=== PATIENT | male | born 1950 | race Caucasian/White ===

== ENCOUNTER 2017-07-29 10:47 | Emergency (ER) | payer BC ==
[~2017-07-29] VITALS: Ht 175.3 cm; Wt 79.5 kg
[~2017-07-29 10:47] MED LIST: AMOXICILLIN 8751 TAB PO; ZOCOR5 MG PO
[2017-07-29 10:51] VITALS: TEMP 97.6
[2017-07-29] MEDS ORDERED: NORCO 325 MG-51 TAB PO (15:32)
[2017-07-29 16:49] VITALS: BP 134/86; PULSE 76
== END 2017-07-29 16:48 | disposition home or self-care (01) ==
LOC: COL.ER 10:47
DX: S43.004A Unspecified dislocation of right shoulder joint, initial encounter (principal); W19.XXXA Unspecified fall, initial encounter; Y92.009 Unspecified place in unspecified non-institutional (private) residence as the place of occurrence of the external cause
CPT/HCPCS: J2250; J2704; J2765; J3010; J7030

== ENCOUNTER 2018-03-15 13:11 | Emergency (ER) | payer BC ==
[~2018-03-15] VITALS: Ht 175.3 cm; Wt 79.5 kg
[~2018-03-15 13:11] MED LIST changes: +NORCO 325 MG-51 TAB PO
[2018-03-15 13:30] LABS: BASO # 0.1 (0.0-0.2); BASO % 0.5 % (0.0-2.0); EOS # 0.2 (0.0-0.7); EOS % 1.8 % (0-4.0); GRAN # 7.2 (1.4-6.5); GRAN % 70.8 % (42.2-75.2); HEMATOCRIT 49.9 % (42.0-52.0); LYMPH # 2.2 (1.2-3.4); LYMPH % 21.2 % (20.0-51.0); MEAN CELL VOLUME 90 fl (80.0-100.0); MEAN CORPUSCULAR HEMOGLOBIN 31 pg (27.0-31.0); MEAN CORPUSCULAR HGB CONC 34 g/dl (33.0-37.0); MEAN PLATELET VOLUME 9.4 fl (7.4-10.4); MONO # 0.6 (0.1-0.6); MONO % 5.4 % (1.7-9.3); PLATELET COUNT 284 K/mm3 (130-400); RED BLOOD COUNT 5.54 M/mm3 (4.20-5.60); REDCELL DISTRIBUTION WIDTH-CV 13.2 % (11.5-14.5)
[2018-03-15 13:40] LABS: PARTIAL THROMBOPLASTIN TIME 28.4 SECONDS (26.0-37.0)
[2018-03-15] MEDS ORDERED: VALTREX 50500 MG/TAB PO (13:41)
[2018-03-15] MEDS ORDERED: ASPIRIN 32325 MG/TAB PO (13:41)
[2018-03-15] MEDS ORDERED: TUMS500 MG (13:42)
[2018-03-15 13:55] VITALS: BP 113/86; PULSE 97
[2018-03-15 13:57] LABS: TROPONIN-I 0.02 ng/mL (0.000-0.034)
[2018-03-15 14:13] LABS: ALBUMIN 2.5 gm/dL (3.5-5.0); BILIRUBIN,TOTAL 0.4 mg/dL (0.0-1.0); CALCIUM 6.5 mg/dL (8.4-10.2); CREATININE, serum 0.61 mg/dL (0.66-1.25); POTASSIUM 3.1 mmol/L (3.4-5.0)
== END 2018-03-15 13:55 | disposition short-term general hospital (02) ==
LOC: COL.ER 13:11
PROVIDERS: Emergency Medicine
DX: I21.29 ST elevation (STEMI) myocardial infarction involving other sites (principal); E78.5 Hyperlipidemia, unspecified; Z98.890 Other specified postprocedural states
CPT/HCPCS: J1644; J2405; J3010; J3101; J7030

== ENCOUNTER 2018-05-13 13:04 | Outpatient (RCR) | payer BC ==
[~2018-05-13 13:04] MED LIST changes: +ASPIRIN 32325 MG/TAB PO; +TUMS500 MG; +VALTREX 50500 MG/TAB PO
== END 2018-05-15 05:38 | disposition home or self-care (01) ==
LOC: COL.CR 13:04
DX: Z48.812 Encounter for surgical aftercare following surgery on the circulatory system (principal); Z95.5 Presence of coronary angioplasty implant and graft; I21.9 Acute myocardial infarction, unspecified

== ENCOUNTER 2018-08-12 13:23 | Outpatient (RCR) | payer SELFPAY | END 2018-08-13 | disposition home or self-care (01) | LOC: COL.CR | DX: Z02.89 Encounter for other administrative examinations (principal) ==

== ENCOUNTER 2018-10-16 15:06 | Outpatient (RCR) | payer SELFPAY | END 2018-10-21 11:56 | disposition home or self-care (01) | LOC: COL.CR 15:06 | DX: Z02.89 Encounter for other administrative examinations (principal) ==

== ENCOUNTER 2019-07-12 15:55 | Outpatient (RCR) | payer SELFPAY | END 2019-08-26 | disposition home or self-care (01) | LOC: COL.CR | DX: Z02.89 Encounter for other administrative examinations (principal) ==

== ENCOUNTER 2020-05-30 03:16 | Emergency (ER) | payer BC ==
[~2020-05-30] VITALS: Ht 175.3 cm; Wt 75.0 kg
[2020-05-30 03:25] VITALS: TEMP 98.7
[2020-05-30 03:44] LABS: BASO % 0.5 % (0.0-2.0); EOS # 0.5 (0.0-0.7); EOS % 8.1 % (0-4.0); GRAN # 2.9 (1.4-6.5); GRAN % 52.3 % (42.2-75.2); HEMATOCRIT 43.9 % (42.0-52.0); HEMOGLOBIN 14.5 g/dl (13.5-18.0); LYMPH # 1.7 (1.2-3.4); LYMPH % 29.9 % (20.0-51.0); MEAN CELL VOLUME 94 fl (80.0-100.0); MEAN CORPUSCULAR HEMOGLOBIN 31 pg (27.0-31.0); MEAN CORPUSCULAR HGB CONC 33 g/dl (33.0-37.0); MONO # 0.5 (0.1-0.6); MONO % 8.8 % (1.7-9.3); PLATELET COUNT 202 K/mm3 (130-400); RED BLOOD COUNT 4.66 M/mm3 (4.20-5.60)
[2020-05-30 03:53] LABS: ALANINE AMINOTRANSFERASE 31 U/L (4-49); ALBUMIN 3.8 gm/dL (3.5-5.0); ALKALINE PHOSPHATASE 58 U/L (50-136); ANION GAP 7 mmol/L (7-16); AST,SGOT 34 U/L (15-37); BILIRUBIN,TOTAL 0.5 mg/dL (0.0-1.0); BLOOD UREA NITROGEN 29 mg/dL (9-20); CALCIUM 9.1 mg/dL (8.4-10.2); CARBON DIOXIDE 28 mmol/L (22-30); CHLORIDE 102 mmol/L (98-107); CREATININE, serum 0.91 (0.66-1.25); GLUCOSE 104 mg/dL (74-106); POTASSIUM 4.2 mmol/L (3.4-5.0); SODIUM 136 mmol/L (137-145); TOTAL PROTEIN 6.7 gm/dL (6.4-8.2)
[2020-05-30 04:06] LABS: TROPONIN-I < 0.012 ng/mL (0.000-0.035)
[2020-05-30 04:56] LABS: PH 5 (5-8); SQUAMOUS EPITHELIAL None Seen /hpf; URINE APPEARANCE Clear; URINE BACTERIA None Seen /hpf; URINE BILIRUBIN Negative (NEGATIVE); URINE BLOOD Negative (NEGATIVE); URINE COLOR Straw; URINE GLUCOSE Negative (NEGATIVE); URINE KETONE Negative (NEGATIVE); URINE LEUKOCYTE ESTERASE Negative (NEGATIVE); URINE NITRATE Negative (NEGATIVE); URINE PROTEIN(semi-quant) Negative (NEGATIVE); URINE RBC 0-2 /hpf; URINE UROBILINOGEN Negative (NEGATIVE); URINE WBC 0-2 /hpf
[2020-05-30 04:58] LABS: COLLECTION METHOD CLEAN CATCH
[2020-05-30 07:54] VITALS: BP 117/92; PULSE 63
== END 2020-05-30 07:23 | disposition home or self-care (01) ==
LOC: COL.ER 03:16
PROVIDERS: Emergency Medicine
DX: R07.89 Other chest pain (principal); I25.10 Atherosclerotic heart disease of native coronary artery without angina pectoris; E78.5 Hyperlipidemia, unspecified; Z95.9 Presence of cardiac and vascular implant and graft, unspecified; Z79.82 Long term (current) use of aspirin

== ENCOUNTER 2021-03-21 10:05 | Day surgery (SDC) | payer BC ==
[~2021-03-21] VITALS: Ht 175.3 cm; Wt 75.2 kg
[2021-03-21] MEDS ORDERED: CRESTOR 10MG10 MG PO (10:54)
[2021-03-21] MEDS ORDERED: TAGAMET200 MG PO (10:55)
[2021-03-21 11:27] VITALS: BP 117/75; PULSE 57; TEMP 97.9
[2021-03-21] MEDS ORDERED: ROXICODONE 55 MG/TAB PO (13:09)
[2021-03-21 13:55] VITALS: BP 139/91; PULSE 73; TEMP 98.7
[2021-03-21 14:10] VITALS: BP 133/84; PULSE 80
[2021-03-21 14:25] VITALS: BP 132/87; PULSE 75
[2021-03-21 14:45] VITALS: BP 121/77; PULSE 92
[2021-03-21 15:00] VITALS: BP 114/74; PULSE 82
--- NOTE | 2021-03-21 16:10 | NUR ---
PT RETURNED FROM PACU PER CART INTO BAY#5. PT ALERT TO NAME, SLEEPY. PT RATES PAIN AT A 6 ON 0-10 SCALE. ABDOMINAL BANDAIDS X4 INTACT. JOCK STRAP IN PLACE. LUNGS CLEAR, HRR AND BOWEL SOUNDS PRESENT. DENIES NAUSEA AT THIS TIME. WILL CONT. TO MONITOR.
--- NOTE | 2021-03-21 16:20 | NUR ---
PT GIVEN DOSE OF OXYCODONE PER PRN ORDERS FOR C/O PAIN. PT DENIES NAUSEA, REQUESTS CRACKERS WITH PEANUT BUTTER AND COFFEE. AT BEDSIDE, WILL CONT TO MONITOR PROGRESS.
--- NOTE | 2021-03-21 16:24 | NUR ---
PT TOLERATING FOOD AND FLUIDS WITHOUT DIFFICULTY. DENIES NAUSEA. IV FLUIDS WERE DISCONTINUED. TALKING WITH AT BEDSIDE, WILL CONT TO MONITOR. PROGRESS.
--- NOTE | 2021-03-21 16:26 | NUR ---
PT IV WAS DC'D. PT STATED THAT HE HAD RELIEF FROM THE ABDOMINAL PAIN AND DISCOMFORT AND RATED HIS PAIN AT A 5 OF 0-10 SCALE. PT UP TO VOID WITHOUT DIFFICULTY, HAD X1 ASSIST.
--- NOTE | 2021-03-21 16:28 | NUR ---
ABDOMINAL BANDAIDS ARE INTACT AND DRY. SCROTAL SUPPORT IN PLACE. PT CHANGING POSITION WITHOUT DIFFICUTLY. CONTINUES TO DENY NAUSEA AND VOMITING AND STATES THE PAIN IS BETTER. DISMISSAL INSTRUCTIONS WERE GIVEN TO PT, PT DENIES QUESTIONS. RETURN APPT WAS MADE FOR 2 WEEKS. PT WAS TAKEN TO THE FAMILY VEHICLE PER . WAS DRIVING.
== END 2021-03-21 15:00 | disposition home or self-care (01) ==
LOC: SDCO 10:05
DX: K40.90 Unilateral inguinal hernia, without obstruction or gangrene, not specified as recurrent (principal); K21.9 Gastro-esophageal reflux disease without esophagitis; E78.00 Pure hypercholesterolemia, unspecified; I51.9 Heart disease, unspecified; Z79.82 Long term (current) use of aspirin; Z79.899 Other long term (current) drug therapy
CPT/HCPCS: C1781; J0690; J1100; J2370; J2405; J2704; J3010; J7050

== ENCOUNTER 2023-09-19 16:36 | Emergency (ER) | payer BC ==
[~2023-09-19] VITALS: Ht 172.7 cm; Wt 77.3 kg
[~2023-09-19 16:36] MED LIST changes: +CRESTOR 10MG10 MG PO; +ROXICODONE 55 MG/TAB PO; +TAGAMET200 MG PO
[2023-09-19 16:41] VITALS: TEMP 98
[2023-09-19 17:14] LABS: BASO # 0.1 K/mm3 (0.0-0.2); BASO % 0.7 % (0.0-2.0); EOS # 0.4 K/mm3 (0.0-0.7); EOS % 5.1 % (0.0-4.0); GRAN # 4.6 K/mm3 (1.4-6.5); GRAN % 64.4 % (42.2-75.2); HEMATOCRIT 43.9 % (42.0-52.0); HEMOGLOBIN 14.5 g/dl (13.5-18.0); LYMPH # 1.7 K/mm3 (1.2-3.4); LYMPH % 22.9 % (20.0-51.0); MEAN CELL VOLUME 92 fl (80.0-100.0); MEAN CORPUSCULAR HEMOGLOBIN 31 pg (27-31); MEAN CORPUSCULAR HGB CONC 33 g/dl (33.0-37.0); MEAN PLATELET VOLUME 10.3 fl (7.4-10.4); MONO # 0.5 K/mm3 (0.1-0.6); MONO % 6.8 % (1.7-9.3); PLATELET COUNT 229 K/mm3 (130-400); RED BLOOD COUNT 4.75 M/mm3 (4.20-5.60); REDCELL DISTRIBUTION WIDTH-CV 13.7 % (11.5-14.5)
[2023-09-19 17:31] LABS: ALANINE AMINOTRANSFERASE 35 U/L (0-55); ALBUMIN 3.8 g/dL (3.4-4.8); ALKALINE PHOSPHATASE 71 U/L (40-150); ANION GAP 8 mmol/L (7-16); AST,SGOT 38 U/L (5-34); BILIRUBIN,TOTAL 0.4 mg/dL (0.2-1.2); BLOOD UREA NITROGEN 22 mg/dL (8-26); CALCIUM 9.6 mg/dL (8.4-10.2); CHLORIDE 108 mEq/L (98-107); CREATININE, serum 0.96 mg/dL (0.72-1.25); GLUCOSE 148 mg/dL (70-99); POTASSIUM 4.1 mEq/L (3.5-4.5); SODIUM 140 mEq/L (136-145); TOTAL PROTEIN 7.4 g/dl (6.2-8.1)
[2023-09-19 17:39] LABS: TROPONIN-I < 0.010 ng/mL (0.00-0.033)
[2023-09-19 17:50] VITALS: BP 101/54; PULSE 63
== END 2023-09-19 17:50 | disposition home or self-care (01) ==
LOC: COL.ER 16:36
PROVIDERS: Family Medicine
DX: I25.10 Atherosclerotic heart disease of native coronary artery without angina pectoris (principal); I25.2 Old myocardial infarction; Z95.5 Presence of coronary angioplasty implant and graft